=== PATIENT | female | born 1970 | race Caucasian/White ===

== ENCOUNTER → 2017-07-19 | Outpatient (CLI) | payer OTHER | LOC: FIMAGING 12:15 | PROVIDERS: ATTEND Physician Assistant | DX: Z09 Encounter for follow-up examination after completed treatment for conditions other than malignant neoplasm (principal); Z87.898 Personal history of other specified conditions | CPT/HCPCS: 0159T; C8908 ==

== ENCOUNTER → 2018-11-03 | Outpatient (CLI) | payer OTHER | LOC: EMCIMAGING 08:12 ==